=== PATIENT | female | born 1980 | race Caucasian/White ===

== ENCOUNTER 2020-11-18 13:40 | Outpatient (CLI) | payer OTHER ==
--- NOTE | 2020-11-18 13:57 | RAD ---
EXAM: 3 views of the right wrist HISTORY: Wrist pain after fall COMPARISON: None FINDINGS: 3 views of the right wrist shows no evidence of acute fracture or dislocation. No soft tiss ue swelling is seen. No degenerative changes are present. IMPRESSION: No evidence of acute osseous abnormality.
--- NOTE | 2020-11-18 14:11 | RAD ---
RIGHT ELBOW 4 VIEWS: HISTORY: Elbow pain status post fall. FINDINGS: There are no signs of fracture, dislocation, or joint effusion. IMPRESSION: Negative right elbow. POS: [facility]
== END 2020-11-18 13:41 | disposition home or self-care (01) ==
LOC: NAV RAD 13:40
PROVIDERS: ATTEND Registered Nurse
DX: M25.521 Pain in right elbow (principal)

== ENCOUNTER 2022-07-06 12:35 | Emergency (ER) | payer OTHER ==
[2022-07-06] MEDS ORDERED: Acetaminophen 500 MG TAB ONE (13:16)
== END 2022-07-06 14:17 | disposition home or self-care (01) ==
LOC: NAV ERS 12:35
DX: S00.03XA Contusion of scalp, initial encounter (principal); F07.81 Postconcussional syndrome; W01.198A Fall on same level from slipping, tripping and stumbling with subsequent striking against other object, initial encounter; Y92.000 Kitchen of unspecified non-institutional (private) residence as the place of occurrence of the external cause
CPT/HCPCS: 70450